=== PATIENT | female | born 1980 | race Caucasian/White ===

== ENCOUNTER 2023-01-12 18:12 | Emergency (ER) | payer OTHER, SELFPAY ==
[2023-01-12 18:19] VITALS: BP 134/79; PULSE 98; RESP 18; TEMP 36.8; O2SAT 100
--- NOTE | 2023-01-12 18:57 | ED.ALLEREA ---
HPI - Allergic Reaction General Chief complaint: Allergic Reaction <Luzma Mcleod PA-C - Last Filed: 01/13/23 00:53> Stated complaint: allergic reaction <Luzma Mcleod PA-C - Last Filed: 01/13/23 00:53> Time Seen by Provider: 01/12/23 18:44 <Luzma Mcleod PA-C - Last Filed: 01/13/23 00:53> History of Present Illness HPI narrative: 42 y/o F reports for evaluation of left eye swelling, bilateral ear swelling, right foot swelling, right hand swelling, erythematous and pruritic rash throughout upper extremities, feet and buttock x10 days. Patient reports the rash is migratory, and every days changing locations. She states it started about 10 days ago with lesions appearing, then disappearing. She woke up this morning with her left eye swollen shut with surrounding erythema along with swelling and redness to her right ear. The right ear swelling has since resolved and her left ear is swollen. She was evaluated approximately 1 week ago by urgent care, was given IM Solu-Medrol with improvement. States a few days later, she did develop abdominal discomfort that felt like a gas bubble with nausea and vomiting. States that resolved within 24 hours and has not returned. She reports she went to her PCPs office today who took blood work and gave her a Decadron shot and prescribed prednisone. She was called by her PCP prior to arrival to the ED and told her white blood cell count was elevated to 14.5 and her CRP was elevated, and that she should report to the ED for further evaluation. The patient reports taking Benadryl without relief. Her last dose was 11 hours ago. She denies lip swelling, throat swelling, tongue swelling, difficulty breathing or wheezing, chest pain, abdominal pain, nausea or vomiting since that had resolved 3 days ago, fever. She denies difficulty with EOMs, pain with EOMs, headache or vision changes, fever. Patient reports she had an episode similar to this approximately 10 years ago, was evaluated by an pesticide use medical coordinator, no known cause was found. She has not had a reaction since. She denies new shampoos, detergents, soaps, clothing, foods, medications or other new exposures. <Luzma Mcleod PA-C - Last Filed: 01/13/23 00:53> Related Data Allergies/adverse reactions: Allergies Allergy/AdvReac Type Severity Reaction Status Date / Time No Known Allergies Allergy Verified 01/12/23 18:28 <Luzma Mcleod PA-C - Last Filed: 01/13/23 00:53> Review of Systems Review of Systems: CONSTITUTIONAL: Denies fever, chills EYES: See HPI ENT: Denies rhinorrhea, congestion, sore throat, or otalgia. CARDIOVASCULAR: Denies chest pain, palpitations, or edema. RESPIRATORY: Denies cough or dyspnea. GASTROINTESTINAL: See HPI GENITOURINARY: Denies dysuria or hematuria. SKIN: See HPI. MUSCULOSKELETAL: Denies back pain, joint pain, or myalgia. NEUROLOGIC: Denies headache, numbness, dizziness, or weakness. PSYCHIATRIC: Denies anxiety or depression. <Luzma Mcleod PA-C - Last Filed: 01/13/23 00:53> Exam Narrative: GENERAL: Well-appearing, in no acute distress. Patient resting comfortably in exam bed. She is pleasant and conversational. HEAD: Normocephalic EYES: PERRLA, EOMI. Left eye with periorbital swelling and erythema. No tenderness to palpation. ENT: Nares clear. Mucous membranes moist. Oropharynx without tonsillar hypertrophy exudate or other lesions. Bilateral TMs are [place] nonbulging, normal canals. Left auricle erythematous and edematous. No edema to lips, tongue, throat. NECK: Supple. CHEST: No respiratory distress. Clear to auscultation, no adventitious breath sounds. HEART: Regular rate and rhythm. No murmur heard. Normal peripheral pulses. ABDOMEN: Soft, nontender, normal active bowel sounds. EXTREMITIES: Normal range of motion. No edema. SKIN: Scattered areas of erythema and urticaria to bilateral upper extremities, left [place], right hip, dorsum of right hand. No drainage
[2023-01-12] MEDS: FAMOTIDINE 20 MG TABLET PO (19:07)
[2023-01-12] MEDS: diphenhydrAMINE HCl CAP 25 MG CAPSULE PO (19:07)
== END 2023-01-12 19:21 | disposition home or self-care (01) ==
PROVIDERS: Emergency Provider Physician Assistant
DX: T78.40XA Allergy, unspecified, initial encounter (principal)
CPT/HCPCS: 99283; A9270